=== PATIENT | male | born 1985 | race Caucasian/White ===

== ENCOUNTER 2019-07-20 09:58 | Emergency (ER) | payer OTHER, MEDICAID, SELFPAY ==
--- NOTE | 2019-07-20 10:18 | DI.RAD.S_ITS ---
PROCEDURE: XR RIBS RT MIN 3V W CXR 1V INDICATIONS: Right rib pain. TECHNIQUE: 4 views of the right ribs were acquired, along with a single view chest. COMPARISON: None. FINDINGS: Surgical changes and devices: None. Displaced Bones and chest wall: No fractures or dislocations. No suspicious bony lesions. Overlying soft tissues appear unremarkable. Lungs and pleura: No pleural effusions or pneumothorax. Lungs appear clear. Mediastinum: Mediastinal contours appear normal. Heart size is normal. IMPRESSION: No displaced rib fractures are identified. Dictated by: Andres Connelly M.D. on 07/20/2019 at 9:59 Approved by: Andres Connelly M.D. on 07/20/2019 at 10:00
[2019-07-20 10:19] VITALS: BP 155/100; PULSE 83; RESP 13; TEMP 36.7; O2SAT 97
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
[2019-07-20 11:13] VITALS: BP 142/100; PULSE 74; RESP 18; O2SAT 97
== END 2019-07-20 11:18 | disposition home or self-care (01) ==
PROVIDERS: Emergency Provider Emergency Medicine
DX: S20.219A Contusion of unspecified front wall of thorax, initial encounter (principal); Y04.2XXA Assault by strike against or bumped into by another person, initial encounter
CPT/HCPCS: 71101; 99283

== ENCOUNTER 2020-08-30 09:09 | Emergency (ER) | payer OTHER, MEDICAID, SELFPAY ==
[2020-08-30 09:10] VITALS: BP 126/72; PULSE 66; RESP 14; TEMP 36.6; O2SAT 99; BMI 25.3
--- NOTE | 2020-08-30 09:19 | ED.RECABL ---
HPI - Recheck/Abnormal Lab/Rx General Chief Complaint: Recheck/Abnormal Lab/Rx Stated Complaint: sent by doctor, high levels on labs Time Seen by Provider: 08/30/20 09:18 Source: patient Mode of arrival: Ambulatory Limitations: no limitations History of Present Illness HPI narrative: Patient is a 34-year-old male who has hepatitis C and is being treated at the local [facility], he had routine blood work drawn yesterday told he had high potassium and go to the emergency department he came this morning with his [employer] in hand needing blood work rechecked. He he overall is feeling weak fatigued but really has no significant complaints. No chest pain shortness breath nausea vomiting or abdominal pain MD complaint: abnormal lab Related Data Allergies Allergy/AdvReac Type Severity Reaction Status Date / Time No Known Drug Allergies Allergy Verified 08/30/20 09:29 Review of Systems Review of Systems Narrative: GENERAL: + fatigue Denies chills, malaise, fever, sweats, travel HEENT: Denies sinus pain, ear pain, sore throat, difficulty swallowing, neck pain RESPIRATORY: Denies dyspnea, cough, wheezing, hemoptysis, sputum. CARDIOVASCULAR: Denies chest pain, palpitations, orthopnea, edema GASTROINTESTINAL: Denies nausea, vomiting, abdominal pain, diarrhea, constipation, melena. : Denies dysuria, frequency, incontinence, hematuria, urinary retention, flank pain. MUSCULOSKELETAL: Denies weakness, joint pain, or bony pain SKIN: No rash, no erythema, no pruritus NEUROLOGIC: Denies weakness, dizziness, headache, numbness, change in speech, confusion PSYCHIATRIC: No concerning psychosocial issues. 12 point review of systems is negative except for those stated above and HPI Patient History Medical History Hepatitis C Patient denies medical problems Social History Smoking Status: Current every day smoker Smoking Status: Current every day smoker tobacco type: cigarettes alcohol intake frequency: 0-2 drinks per day Substance Use Type: does not use Exam Initial Vital Signs Initial Vital Signs: Vital Signs Temperature 97.9 F 08/30/20 09:10 Pulse Rate 66 08/30/20 09:10 Respiratory Rate 14 08/30/20 09:10 Blood Pressure 126/72 08/30/20 09:10 Pulse Oximetry 99 08/30/20 09:10 GENERAL: Well-appearing, well-nourished and in no acute distress. HEENT: Head atraumatic,EOMI, pupils reactive, face symmetric, moist mucous membranes CARDIOVASCULAR: Regular rate and rhythm without murmurs, rubs or gallops. RESPIRATORY: Breath sounds equal bilaterally, no wheezes rales or rhonchi. ABDOMEN: Soft, nontender. Normoactive bowel sounds all 4 quadrants. No guarding or rebound. EXTREMITIES: Normal range of motion, no clubbing or edema. Neurovascularly intact NEUROLOGICAL: Alert and oriented x4.Normal gait and speech. Cranial nerves II through XII grossly intact. SKIN: Warm, dry, no laceration, no petechiae, no rashes or lesions. Course Orders Ordered: ED Orders 08/30/20 09:21 Complete Blood Count AUTO DIFF Stat Comprehensive Metabolic Panel Stat Lipase Stat Troponin & CK Cardiac Panel Stat 08/30/20 09:27 EKG-12 Lead Stat Vital Signs Vital signs: Vital Signs - 8 hr 08/30/20 09:10 Temperature 97.9 F Pulse Rate 66 Respiratory Rate 14 Blood Pressure 126/72 Pulse Oximetry 99 MDM - Recheck/Abnormal Lab/Rx Lab Data Attestation: I reviewed the patient's lab results. Result diagrams: 08/30/20 09:21 08/30/20 09:21 Labs: Lab Results 08/30/20 08/30/20 Range/Units 09:21 09:21 WBC 5.0 (4.5-11.0) X10^3/uL RBC 4.62 (4.5-5.9) X10^6/uL Hgb 13.0 L (13.5-17.5) g/dL Hct 38.2 L (41-53) % MCV 82.8 (80-100) fL MCH 28.2 (26-34) PG MCHC 34.1 (30-36) % RDW 13.9 (11.6-14.8) % Plt Count 170 (150-400) X10^3/uL Neut % (Auto) 49.4 L (50-75) % Lymph % (Auto) 39.3 (25-40) % [place] % (Auto) 8.5 (3-14) % Eos % (Auto) 2.2 (2-4) % Baso % (Auto) 0.6 (0-2) % Neut # (Auto) 2500 (4040-0062) /uL Lymph # (Auto) 2000 (9513-5234) /uL [place] # (Auto) 400 (0-900) /uL Eos # (Auto) 100 (0-450) /uL Baso # (Auto) 0 (0-100) /uL Sodium 137 (137-145) mmol/L Potassium 4.5 (3.4-5.1) mmol/L Chloride 101 (98-107) mmol/L Carbon Dioxide 32 (22-32) mmol/L BUN 22 H (9-20) mg/dL Creatinine 0.79 (0.66-1.25) mg/dL Estimated GFR > 60.0 (>60) mL/min BUN/Creatinine Ratio 27.8 H (6-22) Glucose 120 H (70-100) mg/dL Calcium 9.3 (8.4-10.2) mg/dL Total Bilirubin 0.2 (0.2-1.3) mg/dL AST 28 (17-59) IU/L ALT 15 (<50) IU/L Alkaline Phosphatase 51 (38-126) U/L Total Creatine Kinase 55 (55-170) U/L CK-MB (CK-2) TNP CK-MB (CK-2) Rel Index TNP Troponin I < 0.012 (0.01-0.034) ng/mL Total Protein 7.3 (6.3-8.2) g/dL Albumin 4.4 (3.5-5.0) g/dL Globulin 2.9 (1.7-4.1) g/dL Albumin/Globulin Ratio 1.5 (1.0-2.8) Lipase 31 (23-300) U/L ECG Data Attestation: I personally reviewed and interpreted this ECG as follows: Prior ECG tracings: not available for review Interpretation: Normal sinus rhythm rate 57 p.r. interval 118 QRS 96 QTC 449 T-wave inversion noted in lead [address] changes MDM Narrative Medical decision making narrative: The patient blood work is overall reassuring previous hyperkalemia is full likely hemolyzed. Patient is reassured and instructed to follow-up Discharge Plan Departure Patient Disposition: Home Clinical Impression: Worried well Hepatitis C Qualifiers: Viral hepatitis chronicity: unspecified Hepatic coma status: without hepatic coma Qualified Code(s): B19.20 - Unspecified viral hepatitis C without hepatic coma Instructions: DI for Hepatitis C Activity Restrictions/Additional Instructions: *You have been diagnosed with hepatitis-C *What to do: Blood work today is overall reassuring. Please follow-up as directed and continue medications *Continue to take medications as directed *Follow up with your primary care provider in 2-3 days *Return to ER if you should have pain weakness, nausea, vomiting or any new, worsening or concerning symptoms Referrals: Meenu Arizmendi ARNP [Primary Care Provider] -
[2020-08-30 09:25] VITALS: PULSE 65; O2SAT 99
[2020-08-30 09:30] VITALS: BP 120/77; PULSE 70; O2SAT 99
[2020-08-30 09:33] LABS: Add Manual Diff / Slide Review NO; Basophils Absolute Auto 0 /uL (0-100); Basophils Percent Auto 0.6 % (0-2); Eosinophils Absolute Auto 100 /uL (0-450); Eosinophils Percent Auto 2.2 % (2-4); Hematocrit 38.2 % (41-53); Lymphocytes Absolute Auto 2000 /uL (1100-4500); Lymphocytes Percent Auto 39.3 % (25-40); Mean Corpuscular HGB Conc 34.1 % (30-36); Mean Corpuscular Hemoglobin 28.2 PG (26-34); Mean Corpuscular Volume 82.8 fL (80-100); Monocytes Absolute Auto 400 /uL (0-900); Monocytes Percent Auto 8.5 % (3-14); Neutrophils Absolute Auto 2500 /uL (1500-7000); Neutrophils Percent Auto 49.4 % (50-75); Platelet Count 170 X10^3/uL (150-400); Red Blood Cell Count 4.62 X10^6/uL (4.5-5.9); Red Cell Distribution Width 13.9 % (11.6-14.8)
[2020-08-30 09:41] LABS: Alanine Aminotransferase 15 IU/L (<50); Albumin 4.4 g/dL (3.5-5.0); Albumin Globulin Ratio 1.5 (1.0-2.8); Alkaline Phosphatase 51 U/L (38-126); Aspartate Aminotransferase 28 IU/L (17-59); BUN Creatinine Ratio 27.8 (6-22); Bilirubin Total 0.2 mg/dL (0.2-1.3); Blood Urea Nitrogen 22 mg/dL (9-20); Calcium 9.3 mg/dL (8.4-10.2); Carbon Dioxide 32 mmol/L (22-32); Chloride 101 mmol/L (98-107); Creatine Kinase 55 U/L (55-170); Estimated Glomerular Filt Rate > 60.0 mL/min (>60); Globulin 2.9 g/dL (1.7-4.1); Glucose 120 mg/dL (70-100); HEMOLYSIS < 15 (0-50); Lipase 31 U/L (23-300); Potassium 4.5 mmol/L (3.4-5.1); Sodium 137 mmol/L (137-145); Total Protein 7.3 g/dL (6.3-8.2)
[2020-08-30 09:52] LABS: Troponin I < 0.012 ng/mL (0.01-0.034)
[2020-08-30 10:00] VITALS: BP 120/80; PULSE 65; RESP 22; O2SAT 99
== END 2020-08-30 10:37 | disposition home or self-care (01) ==
PROVIDERS: Emergency Provider Emergency Medicine; PCP Nurse Practitioner Family
DX: R79.89 Other specified abnormal findings of blood chemistry (principal); B19.20 Unspecified viral hepatitis C without hepatic coma; R07.9 Chest pain, unspecified
CPT/HCPCS: 36415; 80053; 82550; 83690; 84484; 85025; 93005; 99283; 99284

== ENCOUNTER 2021-10-11 11:01 | Emergency (ER) | payer OTHER, MEDICAID, SELFPAY ==
[2021-10-11 11:39] VITALS: BP 120/80; PULSE 65; RESP 15; TEMP 36.2; O2SAT 99; BMI 24.4
== END 2021-10-11 13:38 | disposition left against medical advice (07) ==
PROVIDERS: Emergency Provider Emergency Medicine; PCP Nurse Practitioner Family
DX: R21 Rash and other nonspecific skin eruption (principal)
CPT/HCPCS: 99281

== ENCOUNTER 2023-08-01 18:23 | Emergency (ER) | payer OTHER, MEDICAID, SELFPAY ==
[2023-08-01 18:23] VITALS: BP 137/99; PULSE 69; RESP 14; TEMP 36.6; O2SAT 97; BMI 32.5
--- NOTE | 2023-08-01 18:53 | PC.NURSE ---
Pt seen and assessed by provided before this RN able.
--- NOTE | 2023-08-01 19:10 | ED.DENTAL ---
HPI - Dental/Oral <Zoila Alexander PA-C - Last Filed: 08/01/23 19:14> General Chief complaint: Dental/Oral Stated complaint: infected tooth Time Seen by Provider: 08/01/23 18:36 Source: patient Mode of arrival: Ambulatory History of Present Illness HPI Narrative: 37-year-old male with past medical history hepatitis-C, poor dentition presents to the ED with 1 week of right upper gum swelling and pain. Patient wears dentures along the upper gumline. Patient states that he has had this happened before where his gums got very irritated and swollen. Patient is scheduled to see his dentist later this week. Patient has been doing saline rinses with little relief. Patient denies fever, chills, nausea, vomiting. Related Data Home Medications Medication Instructions Recorded Confirmed lisinopril 5 mg tablet 5 mg PO DAILY 10/11/21 10/11/21 methadone 40 mg soluble tablet 120 mg PO DAILY 10/11/21 10/11/21 Previous Rx's Medication Instructions Recorded amoxicillin 875 mg-potassium 1 tab PO Q12H 14 days #28 tabs 08/01/23 clavulanate 125 mg tablet ibuprofen 800 mg tablet 800 mg PO Q8H PRN pain #30 tabs 08/01/23 Allergies Allergy/AdvReac Type Severity Reaction Status Date / Time No Known Drug Allergies Allergy Verified 08/01/23 18:31 Review of Systems <Zoila Alexander PA-C - Last Filed: 08/01/23 19:14> Constitutional Constitutional: Denies chills, Denies fatigue, Denies fever(s), Denies frequent falls, Denies lethargy and Denies weakness Eyes Eyes: Denies change in vision, Denies eye discharge, Denies irritation and Denies loss of vision ENT Ears, Nose, Mouth, and Throat: Denies change in voice, Reports dental pain, Denies dizziness, Denies neck pain, Denies sore throat and Denies throat swelling Cardiovascular Cardiovascular: Denies chest pain, Denies irregular heart rhythm, Denies lightheadedness, Denies palpitations, Denies dyspnea, Denies dyspnea on exertion and Denies orthopnea Respiratory Respiratory: Denies cough, Denies dyspnea, Denies dyspnea on exertion and Denies wheezing Gastrointestinal Gastrointestinal: Denies abdominal pain, Denies change in bowel habits, Denies diarrhea, Denies nausea and Denies vomiting Musculoskeletal Musculoskeletal: Denies neck pain and Denies numbness Integumentary/Breasts Skin/Breast: Denies pruritus, Denies erythema, Denies rash and Denies wounds Neurologic Neurologic: Denies behavioral changes, Denies confusion, Denies dizziness, Denies frequent falls, Denies loss of vision, Denies numbness and Denies weakness Psychiatric Psychiatric: Denies anxiety, Denies behavioral changes, Denies confusion, Denies depression, Denies homicidal ideation and Denies suicidal ideation Endocrine Endocrine: Denies fatigue, Denies flushing and Denies palpitations Hematologic/Lymphatic Hematologic/Lymphatic: Denies easy bruising Allergic/Immunologic Allergic/Immunologic: Denies urticaria, Denies throat swelling and Denies wheezing Patient History <Zoila Alexander PA-C - Last Filed: 08/01/23 19:14> Medical History Hepatitis C Patient denies medical problems Social History Smoking Status: Current some day smoker Smoking Status: Current some day smoker tobacco type: cigarettes alcohol intake frequency: holidays/special occasions only Substance Use Type: marijuana Exam <Zoila Alexander PA-C - Last Filed: 08/01/23 19:14> Narrative Exam Narrative: Const General:?cooperative, healthy appearing and comfortable [facility] Head:?normal to inspection Ears:?hearing grossly normal bilaterally Nose:?external nose normal Face and sinus:?normal facial exam and sinuses nontender Mouth:?oral mucosae normal; right upper gumline appears swollen and erythematous. No discharge noted on exam.; no upper teeth are present, status post extraction. Patient wears dentures. Throat:?posterior oropharynx normal Eyes General:?appearance normal, both eyes and all related structures Neck Neck:?normal visual inspection and no lymphadenopathy noted Resp Effort & Inspection:?normal respiratory effort Auscultation:?clear to auscultation bilaterally Cardio Rate:?regular rate Rhythm:?regular rhythm Neuro General:?patient alert, patient awake and patient oriented x3 Initial Vital Signs Initial Vital Signs: Vital Signs Temperature 97.8 F 08/01/23 18:23 Pulse Rate 69 08/01/23 18:23 Respiratory Rate 14 08/01/23 18:23 Blood Pressure 137/99 H 02/06/24 18:23 Pulse Oximetry 97 08/01/23 18:23 Oxygen Delivery Method Room Air 08/01/23 18:23 <Omayra Muse DO - Last Filed: 08/01/23 19:16> Initial Vital Signs Initial Vital Signs: Vital Signs Temperature 97.8 F 08/01/23 18:23 Pulse Rate 69 08/01/23 18:23 Respiratory Rate 14 08/01/23 18:23 Blood Pressure 137/99 H 08/01/23 18:23 Pulse Oximetry 97 08/01/23 18:23 Oxygen Delivery Method Room Air 08/01/23 18:23 Course <Zoila Alexander PA-C - Last Filed: 08/01/23 19:14> Vital Signs Vital signs: Vital Signs - 8 hr 08/01/23 18:23 Temperature 97.8 F Pulse Rate 69 Respiratory Rate 14 Blood Pressure 137/99 H Pulse Oximetry 97 Oxygen Delivery Method Room Air <Omayra Muse DO - Last Filed: 08/01/23 19:16> Vital Signs Vital signs: Vital Signs - 8 hr 08/01/23 18:23 Temperature 97.8 F Pulse Rate 69 Respiratory Rate 14 Blood Pressure 137/99 H Pulse Oximetry 97 Oxygen Delivery Method Room Air MDM - Dental/Oral <Zoila Alexander PA-C - Last Filed: 08/01/23 19:14> MDM Narrative Medical decision making narrative: 37-year-old male with past medical history hepatitis-C, poor dentition presents to the ED with 1 week of right upper gum swelling and pain. Physical exam is most consistent with a gum infection. Prescribed Augmentin. Also prescribed ibuprofen since patient does not have any at home and requested a prescription. Recommend follow-up with dentist as soon as possible. ED return precautions were discussed with patient. Patient verbalized understanding. Medical records reviewed: Yes Discharge Plan Departure Patient Disposition: Home Clinical Impression: Toothache Instructions: DI for Dental Pain Activity Restrictions/Additional Instructions: You were evaluated in the ED today for dental pain. Your gum appears red and inflamed and it is likely you have an infection. You are being prescribed antibiotics. Please take those as prescribed. You were also being prescribed ibuprofen for pain control. Please follow-up with your dentist as soon as possible for further evaluation and treatment. Return to the ED if you have worsening symptoms, fever, chills, persistent vomiting. Prescriptions: New amoxicillin-pot clavulanate 875-125 mg tablet 1 tab PO Q12H 14 Days Qty: 28 0RF ibuprofen 800 mg tablet 800 mg PO Q8H PRN (Reason: pain) Qty: 30 0RF No Action methadone 40 mg Tablet,Soluble 120 mg PO DAILY lisinopril 5 mg tablet 5 mg PO DAILY Referrals: Meenu Arizmendi ARNP [Primary Care Provider] - Stand Alone Forms: Patient Portal/API ED Sign-out <Omayra Muse DO - Last Filed: 08/01/23 19:16> Cosign ED Attending Krzysztof Attestation: I was immediately available in the department for consultation.
== END 2023-08-01 18:54 | disposition home or self-care (01) ==
PROVIDERS: Emergency Provider Student in an Organized Health Care Education/Training Program; PCP Nurse Practitioner Family
DX: K08.89 Other specified disorders of teeth and supporting structures (principal)
CPT/HCPCS: 99281